=== PATIENT | female | born 1960 | race Caucasian/White ===

== ENCOUNTER → 2021-09-22 | Outpatient (CLI) | payer OTHER ==
[~2021-09-22] MED LIST: ARMOUR THYROID60 MG PO; CAL MAG ZINC +1 EAC1 PO; FLAX SEED OIL1000 MG PO; VITAMIN B COMP1 EACH PO
== END ==
LOC: HEART 5 09-19 09:00
DX: I08.3 Combined rheumatic disorders of mitral, aortic and tricuspid valves (principal)
CPT/HCPCS: 93306